=== PATIENT | male | born 1945 | race Caucasian/White ===

== ENCOUNTER 2016-04-29 11:14 | Emergency (ER) | payer OTHER, MEDICARE ==
[~2016-04-29] VITALS: Ht 175.3 cm; Wt 86.2 kg
--- NOTE | 2016-04-29 11:33 | ED GENERAL ADULT ---
History of Present Illness General Chief Complaint: Chest Pain Stated Complaint: CP X ON AND OFF FOR 2 WEEKS Source: patient, family Exam Limitations: no limitations Vital Signs & Intake/Output Vital Signs & Intake/Output Vital Signs Date Time Temp Pulse Resp B/P Pulse O2 O2 Flow FiO2 Ox Delivery Rate 04/29 1714 82 16 152/80 98 Room Air 04/29 1401 87 16 152/89 96 Room Air 04/29 1200 Room Air 04/29 1130 98.3 94 16 196/101 95 Room Air Allergies Coded Allergies: No Known Allergies (04/29/16) Reconcile Medications Metoprolol Succ XL (Toprol XL) 25 MG TAB 1 TAB PO DAILY CHEST PAIN Nitroglycerin (Nitrostat) 0.4 MG TAB.SUBL 1 TAB SL AD PRN CHEST PAIN 1st sign of attack; may repeat every 5 minutes until relief; if pain persists after 3 tablets in 15 minutes, prompt medical att Triage Note: OCCASSIONAL CP X2 WEEKS, INCREASED WITH EXERTION. REPORTS ITS PRESSURE AND BURNING TO CENTER OF CHEST, DENIES SOB DURING THESE PERIODS. LAST OCCURRED LAST NIGHT GETTING OUT OF CAR INTO HOUSE. SUBSIDED WITH REST AFTER 10 MINUTES. ALSO REPORTS SUBTLE TINGLING TO R SHOUDLER RADIATING UP INTO NECK SEVERAL TIMES PER DAY. HAS BEEN TAKING ASA X2 WEEKS. DENIES GI/ SYMPTOMS, DENIES DIZZINESS OR CHANGES IN VISION. DENIES ANY CARDIAC HISTORY. Triage Nurses Notes Reviewed? yes Onset: Abrupt Duration: week(s): Timing: recent history HPI: 04/29/16 71-year-old man presents to the emergency department complaining of exertional chest pain. The patient states that over the past 2 weeks he's had intermittent episodes of exertional chest pain. He says it's a burning chest pain that the onset occurs when he walks to get the mail in the cold. It resolves when he rests. No shortness of breath no fever he does admit to right shoulder numbness. His EKG in the emergency department shows a sinus tachycardia with a heart rate of 100 and incomplete right bundle-branch block there is no significant change from the prior tracing. Labs have been ordered and a cardiology consultation was requested. The onset of the symptoms were abrupt, the duration is intermittent, ongoing for 2 weeks; the severity is significant as his symptoms required him to come to the ED for care. Past History Travel History Traveled to [place] past 21 day No Medical History Any Pertinent Medical History? see below for history Neurological: NONE EENT: NONE Cardiovascular: NONE Respiratory: NONE Gastrointestinal: NONE Hepatic: NONE Renal: NONE Musculoskeletal: NONE Psychiatric: depression, RECOVERING ETOH 2004 Endocrine: NONE Blood Disorders: NONE Cancer(s): 11 Surgical History Surgical History: non-contributory Psychosocial History What is your primary language Vietnamese Tobacco Use: Never used ETOH Use: denies use Illicit Drug Use: denies illicit drug use Family History Hx Contributory? No Review of Systems Review of Systems Constitutional: Denies: fever. EENTM: Denies: visual changes. Respiratory: Denies: short of breath. Cardiovascular: Reports: chest pain. GI: Denies: abdominal pain. Genitourinary: Reports: no symptoms. Musculoskeletal: Reports: no symptoms. Skin: Reports: no symptoms. Neurological/Psychological: Reports: no symptoms. Hematologic/Endocrine: Reports: no symptoms. Immunologic/Allergic: Reports: no symptoms. Physical Exam Physical Exam General Appearance: well developed/nourished, alert, awake, anxious, mild distress Head: atraumatic, normal appearance Eyes: Bilateral: normal appearance, PERRL, EOMI. Ears, Nose, Throat: normal pharynx, normal ENT inspection Neck: normal inspection, supple, full range of motion Respiratory: normal breath sounds, chest non-tender, no respiratory distress Cardiovascular: regular rate/rhythm Peripheral Pulses: 4+ radial (R), 4+ radial (L) Gastrointestinal: non-tender Back: normal range of motion Extremities: normal inspection, normal range of motion, no edema Neurologic/Psych: no motor/sensory deficits, awake, alert, oriented x 3 Skin: intact, normal color, warm/dry Core Measures ACS in differential dx? Yes ASA ordered for poss ACS? the patient took aspirin today CVA/TIA Diagnosis: No Severe Sepsis Present: No Septic Shock Present: No Progress Differential Diagnoses I considered the following diagnoses in my evaluation of the patient: [Acute coronary syndrome, pulmonary embolism, aortic dissection, gastroesophageal reflux, exertional angina, COPD, asthma] Plan of Care: Orders Procedure Date/time Status Heart Healthy Diet 04/29 D Active TROPONIN LEVEL 04/29 1530 Complete EKG 04/29 1530 Active TROPONIN LEVEL 04/29 1211 Complete COMPREHENSIVE METABOLIC PANEL 04/29 1211 Complete CBC WITHOUT DIFFERENTIAL 04/29 1211 Complete EKG 04/29 1115 Active Laboratory Tests 04/29/16 1536: Troponin I 0.04 04/29/16 1231: Anion Gap 12, Estimated GFR > 60, BUN/Creatinine Ratio 16.7, Glucose 92, Calcium 10.0, Total Bilirubin 1.4 H, AST 29, ALT 33, Alkaline Phosphatase 85, Troponin I 0.07, Total Protein 7.8, Albumin 4.7, Globulin 3.1, Albumin/Globulin Ratio 1.5 , CBC w Diff NO MAN DIFF REQ, RBC 5.47, MCV 87.8, MCH 30.0, RDW 13.7, MPV 9.1, Gran % 75.0, Lymphocytes % 16.0 L, Monocytes % 7.2, Eosinophils % 1.2, Basophils % 0.6, Absolute Granulocytes 5.1, Absolute Lymphocytes 1.1 L, Absolute Monocytes 0.5, Absolute Eosinophils 0.1, Absolute Basophils 0, PUBS MCHC 34.1 Initial ED EKG: NSR, incomplete right bundle-branch block Repeat EKG: unchanged (occasional PACs) Departure Departure Disposition: HOME OR SELF CARE Condition: Stable Clinical Impression Primary Impression: Chest pain Referrals: YANIV CHEUNG,KEVIN Richards Departure Forms: Customer Survey General Discharge Information Prescriptions: Current Visit Scripts Metoprolol Succ XL (Toprol XL) 1 TAB PO DAILY #30 TAB Nitroglycerin (Nitrostat) 1 TAB SL AD PRN CHEST PAIN #25 TAB 1st sign of attack; may repeat every 5 minutes until relief; if pain persists after 3 tablets in 15 minutes, prompt medical att Comments PATIENT: JAKE EISENBERG PRESENT AGE: 71 PATIENT ACCOUNT NO: [id number] : 45 LOCATION: [facility] ORDERING PHYSICIAN: SANDEEP LOCK DO SERVICE DATE: 04/29/16 EXAM TYPE: RAD - XRY-PORTABLE CHEST XRAY EXAMINATION: XR PORTABLE CHEST CLINICAL INFORMATION: 71-year-old male with chest pain. COMPARISON: Chest radiograph 12/05/2009 TECHNIQUE: Portable AP view of the chest was obtained. FINDINGS: Cardiac mediastinal silhouette is within normal limits. No focal consolidation, pleural effusion or pneumothorax. No acute osseous abnormality. There is been no significant interval change. IMPRESSION: No radiographic evidence of acute pulmonary disease. DICTATED BY: ANDRESSA FREDERICK DO DATE/TIME DICTATED:04/29/16 / 1303 SCENE AND LIGHTING DESIGN LECTURER:JAYNE DATE/TIME TRANSCRIBED:04/29/16 / 1303 CONFIDENTIAL, DO NOT COPY WITHOUT APPROPRIATE AUTHORIZATION. <Electronically signed in Other Vendor System> SIGNED BY: YOLY TAYLORANDRESSA Workman 1307 04/29/16 Repeat EKG shows no ischemic changes occasional PACs only. Repeat troponin troponin is 0.04. The patient is asymptomatic. He was seen and evaluated in the ED by the technical account executive Dr. Rodriguez in one agreement with the plan. We'll discharge him on metoprolol 25 mg by mouth daily he will continue to take aspirin as directed. He will follow-up with Dr. Rodriguez this week and arrangements will be made for cardiac catheterization.. Return to the emergency department should he have chest pain again. Critical Care Note Critical Care Note Critical Care Time: non-applicable Comments: Serial troponins were negative. Repeat EKG no significant change. The patient is asymptomatic in the ED. He was evaluated by the technical account executive. We are in agreement with the plan. I discussed the likelihood of an adverse event in the next 30 days based upon his negative troponins. The patient will follow-up with Dr. Rodriguez this week, cardiac catheterization will be scheduled by Dr. Rodriguez. The patient was started on metoprolol, he will continue to take an aspirin a day, he was given sublingual nitroglycerin. He was told to return to the emergency department if the pain returned. Shared decision-making was utilized in the care of this patient.
[2016-04-29 12:46] LABS: ABSOLUTE BASOPHIL COUNT 0 /CUMM (0.0-0.2); ABSOLUTE EOSINOPHIL COUNT 0.1 /CUMM (0.0-0.7); ABSOLUTE GRANULOCYTE CT 5.1 /CUMM (1.4-6.5); ABSOLUTE LYMPH COUNT 1.1 /CUMM (1.2-3.4); ABSOLUTE MONOCYTE COUNT 0.5 /CUMM (0.10-0.60); BASOPHIL % 0.6 % (0.0-2.0); EOSINOPHIL % 1.2 % (0-5); MEAN CORPUSCULAR HGB CONC 34.1 G/DL (33.0-37.0); MEAN CORPUSCULAR VOLUME 87.8 FL (80.0-94.0); MEAN PLATELET VOLUME 9.1 FL (7.4-10.4); PLATELET COUNT 199 /CUMM (130-400); RBC DISTRIBUTION WIDTH 13.7 % (11.5-14.5); RED BLOOD CELL CT 5.47 /CUMM (4.70-6.10); WHITE BLOOD CELL COUNT 6.8 /CUMM (4.8-10.8)
--- NOTE | 2016-04-29 13:07 | RADIOLOGY REPORT ---
EXAMINATION: XR PORTABLE CHEST CLINICAL INFORMATION: 71-year-old male with chest pain. COMPARISON: Chest radiograph 12/05/2009 TECHNIQUE: Portable AP view of the chest was obtained. FINDINGS: Cardiac mediastinal silhouette is within normal limits. No focal consolidation, pleural effusion or pneumothorax. No acute osseous abnormality. There is been no significant interval change. IMPRESSION: No radiographic evidence of acute pulmonary disease.
[2016-04-29] MEDS ORDERED: NITROSTAT0.4 M1 SL (16:52)
[2016-04-29] MEDS ORDERED: TOPROL XL25 M1 PO (16:52)
[2016-04-29 17:14] VITALS: BP 152/80
--- NOTE | 2016-04-29 19:37 | Cons- Cardiology ---
General Information and HPI Consulting Request Date of Consult: 04/29/16 Requested By: Dr. Givens Reason for Consult: Exertional chest discomfort Source of Information: patient, family History of Present Illness: 71-year-old man presents to the emergency department complaining of exertional chest pain. The patient states that over the past 2 weeks she's had intermittent episodes of exertional chest pain. He says it's a burning chest pain that the onset occurs when he walks to get the mail in the cold. It resolves when he rests. No shortness of breath no fever he does admit to right shoulder numbness. His EKG in the emergency department shows a sinus tachycardia with a heart rate of 100 and incomplete right bundle-branch block there is no significant change from the prior tracing. Labs have been ordered and a cardiology consultation was requested. The symptoms have not increased in severity, however, the patient has been avoiding certain activities in the hope of avoiding the symptoms. Previously active without symptoms. 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 No other associated symptoms noted. No rest symptoms Allergies/Medications Allergies: Coded Allergies: No Known Allergies (04/29/16) Home Med List: Metoprolol Succ XL (Toprol XL) 25 MG TAB 1 TAB PO DAILY CHEST PAIN Nitroglycerin (Nitrostat) 0.4 MG TAB.SUBL 1 TAB SL AD PRN CHEST PAIN 1st sign of attack; may repeat every 5 minutes until relief; if pain persists after 3 tablets in 15 minutes, prompt medical att Past History Travel History Traveled to [place] past 21 day No Medical History Neurological: NONE EENT: NONE Cardiovascular: NONE Respiratory: NONE Gastrointestinal: NONE Hepatic: NONE Renal: NONE Musculoskeletal: NONE Psychiatric: depression, RECOVERING ETOH 2004 Endocrine: NONE Blood Disorders: NONE Cancer(s): 11 Surgical History Surgical History: non-contributory Psychosocial History ETOH Use: denies use Illicit Drug Use: denies illicit drug use Exam & Diagnostic Data Vital Signs and I&O Vital Signs Date Time Temp Pulse Resp B/P Pulse O2 O2 Flow FiO2 Ox Delivery Rate 04/29 1714 82 16 152/80 98 Room Air 04/29 1401 87 16 152/89 96 Room Air 04/29 1200 Room Air 04/29 1130 98.3 94 16 196/101 95 Room Air Intake & Output 04/29 1600 04/29 0800 04/29 0000 04/28 1600 04/28 0800 04/28 0000 Intake Total 0 Output Total Balance 0 Intake, Oral 0 Patient 190 lb Weight Physical Exam: General: WD, WN, WM, NAD, VSS HEENT: normal Neck: normal Chest: clear bilaterally without chest wall tenderness Heart: Regular S1, S2, 1/6 systolic murmur Abdomen: normal Ext: normal Labs/Jamar Results: Laboratory Tests 04/29 04/29 1536 1231 Chemistry Sodium (137 - 145 mmol/L) 144 Potassium (3.5 - 5.1 mmol/L) 3.9 Chloride (98 - 107 mmol/L) 108 H Carbon Dioxide (22 - 30 mmol/L) 23 Anion Gap (5 - 16) 12 BUN (9 - 20 mg/dL) 15 Creatinine (0.7 - 1.2 mg/dL) 0.9 Estimated GFR (>60 ml/min) > 60 BUN/Creatinine Ratio (7 - 25 %) 16.7 Glucose (65 - 99 mg/dL) 92 Calcium (8.4 - 10.2 mg/dL) 10.0 Total Bilirubin (0.2 - 1.3 mg/dL) 1.4 H AST (17 - 59 U/L) 29 ALT (21 - 72 U/L) 33 Alkaline Phosphatase (< 127 U/L) 85 Troponin I (<0.11 ng/ml) 0.04 0.07 Total Protein (6.3 - 8.2 g/dL) 7.8 Albumin (3.5 - 5.0 g/dL) 4.7 Globulin (1.9 - 4.2 gm/dL) 3.1 Albumin/Globulin Ratio (1.1 - 2.2 %) 1.5 Hematology CBC w Diff NO MAN DIFF REQ WBC (4.8 - 10.8 /CUMM) 6.8 RBC (4.70 - 6.10 /CUMM) 5.47 Hgb (14.0 - 18.0 G/DL) 16.4 Hct (42 - 52 %) 48.0 MCV (80.0 - 94.0 FL) 87.8 MCH (27.0 - 31.0 PG) 30.0 RDW (11.5 - 14.5 %) 13.7 Plt Count (130 - 400 /CUMM) 199 MPV (7.4 - 10.4 FL) 9.1 Gran % (42.2 - 75.2 %) 75.0 Lymphocytes % (20.5 - 51.1 %) 16.0 L Monocytes % (1.7 - 9.3 %) 7.2 Eosinophils % (0 - 5 %) 1.2 Basophils % (0.0 - 2.0 %) 0.6 Absolute Granulocytes (1.4 - 6.5 /CUMM) 5.1 Absolute Lymphocytes (1.2 - 3.4 /CUMM) 1.1 L Absolute Monocytes (0.10 - 0.60 /CUMM) 0.5 Absolute Eosinophils (0.0 - 0.7 /CUMM) 0.1 Absolute Basophils (0.0 - 0.2 /CUMM) 0 PUBS MCHC (33.0 - 37.0 G/DL) 34.1 Diagnostic Data EKG Results Sinus with PACs and no STT changes CXR Results FINDINGS: Cardiac mediastinal silhouette is within normal limits. No focal consolidation, pleural effusion or pneumothorax. No acute osseous abnormality. There is been no significant interval change. IMPRESSION: No radiographic evidence of acute pulmonary disease. Assessment/Plan Assessment/Plan Assessment: 1. Exertional chest discomfort consistent with angina. 2. Murmur 3. Atrial ectopy Recommendations: - I had a long discussion with the patient and his about the current situation. His story is very suggestive of worsening exertional angina of recent onset. We discussed the options available and after extended discussion we have decided that the most prudent approach is to pursue a cardiac catheterization as outpatient. - Start metoprolol 25 daily - ASA 81 daily - fasting lipid profile. - TNG SL tabs for prn use as needed. - No significant activity , snow shovelling , etc penidng cardiac catheterization - If any worsening of the symptoms, return directly to the ER. - Patient to call me Monday to arrange cardiac cath at [facility] with Dr Delgado. Consult Acknowledgment - Thank you for your consult request.
== END 2016-04-29 17:16 ==
LOC: ERH 11:14
PROVIDERS: Emergency Medicine
DX: R07.9 Chest pain, unspecified (principal)
CPT/HCPCS: 93005; 93010